=== PATIENT | male | born 1960 | race Caucasian/White ===

== ENCOUNTER 2017-11-21 15:39 | Outpatient (CLI) | payer MEDICAID ==
[~2017-11-21 15:39] MED LIST: HYDR-3965 PO; HYDR28CR14 TP; LANO250L TP; PERM60CR4 TP
[2017-11-21 16:11] VITALS: BP 145/63
== END 2017-11-21 16:49 | disposition home or self-care (01) ==
LOC: ORTHO 15:39
PROVIDERS: ATTEND Nurse Practitioner Family
DX: S52.572A Other intraarticular fracture of lower end of left radius, initial encounter for closed fracture (principal); M79.89 Other specified soft tissue disorders; F17.200 Nicotine dependence, unspecified, uncomplicated; X58.XXXA Exposure to other specified factors, initial encounter; Y93.89 Activity, other specified; Y92.89 Other specified places as the place of occurrence of the external cause; Y99.8 Other external cause status
CPT/HCPCS: 73110; 99213

== ENCOUNTER 2017-12-12 10:57 | Emergency (ER) | payer MEDICAID ==
[~2017-12-12] VITALS: Ht 172.7 cm; Wt 60.0 kg
[~2017-12-12 10:57] MED LIST changes: -HYDR-3965 PO
[2017-12-12 11:30] VITALS: BP 125/96
== END 2017-12-12 12:03 | disposition left against medical advice (07) ==
LOC: ER 10:58
DX: R21 Rash and other nonspecific skin eruption (principal); Z53.21 Procedure and treatment not carried out due to patient leaving prior to being seen by health care provider

== ENCOUNTER 2018-05-18 08:27 | Emergency (ER) | payer MEDICAID ==
[~2018-05-18] VITALS: Ht 165.1 cm; Wt 65.0 kg
[2018-05-18 08:32] VITALS: BP 149/81
[2018-05-18] MEDS ORDERED: CEPH500C5 PO (09:03)
== END 2018-05-18 09:16 | disposition home or self-care (01) ==
LOC: ER 08:28
DX: L03.312 Cellulitis of back [any part except buttock and flank] (principal); L98.499 Non-pressure chronic ulcer of skin of other sites with unspecified severity; G89.29 Other chronic pain; M54.9 Dorsalgia, unspecified; F17.200 Nicotine dependence, unspecified, uncomplicated; F12.90 Cannabis use, unspecified, uncomplicated; Z56.0 Unemployment, unspecified
CPT/HCPCS: 99283

== ENCOUNTER 2018-07-22 02:53 | Inpatient (IN) | payer MEDICAID ==
[~2018-07-22] VITALS: Ht 175.3 cm; Wt 60.0 kg
[~2018-07-22 02:53] MED LIST changes: +CEPH500C5 PO
[2018-07-22] MEDS ORDERED: normal saline 1000ML IV soln IVB ONE (03:55)
--- NOTE | 2018-07-22 05:00 | NUR ---
bg in low fifty's, gave patient orange juice and a turkey sandwich notified dr. hanks will re-check
[2018-07-22 05:05] LABS: BASOPHILS % (AUTO) 0.3 % (0-1); EOSINOPHILS % (AUTO) 0 % (0-6); HEMATOCRIT 45.1 % (42.0-52.0); HEMOGLOBIN 15.3 g/dl (14.0-17.9); LYMPHOCYTES # (AUTO) 0.9 X10'3 (1.1-4.8); LYMPHOCYTES % (AUTO) 6.7 % (21-51); MEAN CORPUSCULAR HEMOGLOBIN 30.6 PG (27.0-31.0); MEAN CORPUSCULAR HGB CONC 33.8 g/dL (33.0-36.5); MEAN CORPUSCULAR VOLUME 90.4 FL (78-98); MEAN PLATELET VOLUME 8.6 FL (7.4-10.4); MONOCYTES # (AUTO) 0.7 X10'3 (0-0.9); MONOCYTES % (AUTO) 4.9 % (2-12); NEUTROPHILS # (AUTO) 12.5 X10'3 (1.8-7.7); NEUTROPHILS % (AUTO) 88.1 % (42-75); PLATELET COUNT 291 X10'3 (140-440); RED BLOOD COUNT 4.99 X10'6 (4.70-6.10); RED CELL DISTRIBUTION WIDTH 14.2 % (11.5-14.5); WHITE BLOOD COUNT 14.1 X10'3 (4.5-11.0)
[2018-07-22 05:20] LABS: ALANINE AMINOTRANSFERASE 57 U/L (12-78); ALBUMIN 3.5 G/DL (3.4-5.0); ALBUMIN/GLOBULIN RATIO 0.7 (1.1-1.5); ALKALINE PHOSPHATASE 124 IU/L (46-116); ANION GAP 22 (8-16); ASPARTATE AMINO TRANSFERASE 145 U/L (10-37); BILIRUBIN,TOTAL 3.5 MG/DL (0.1-1.0); BLOOD UREA NITROGEN 111 MG/DL (7-18); BUN/CREATININE RATIO 21.6 (5.4-32.0); CALCIUM 9.4 MG/DL (8.5-10.1); CHLORIDE 93 MMOL/L (99-107); CREATININE 5.15 MG/DL (0.60-1.10); INR 1.2 INR; PARTIAL THROMBOPLASTIN TIME 31 SECONDS (22-32); POTASSIUM 5.3 MMOL/L (3.5-5.1); PROTHROMBIN TIME 12.3 SECONDS (9.0-12.0); SODIUM 132 MMOL/L (135-145); TOTAL CARBON DIOXIDE 16.6 MMOL/L (24-32); TOTAL PROTEIN 8.2 G/DL (6.4-8.2); eGFR 12 ML/MIN
[2018-07-22 05:22] LABS: ETHANOL < 0.010 GM/DL (0.0-0.010); TROPONIN I < 0.04 NG/ML (0.0-0.05)
[2018-07-22 05:34] LABS: GLUCOSE 55 MG/DL (70-104)
--- NOTE | 2018-07-22 05:49 | NUR ---
patients bg 110 after sandwich and 2 oj's
[2018-07-22] MEDS ORDERED: CefTRIAXone 2gm/D5W 50ml 50 ML IV ONE (05:50)
[2018-07-22] MEDS ORDERED: NO HOME MEDS (06:08)
--- NOTE | 2018-07-22 07:05 | NUR ---
Pt temp 96.9 degrees. Pt placed on Bare Hugger, and warm blankets given.
[2018-07-22 07:56] LABS: CLARITY,URINE CLEAR (Clear); COLOR,URINE YELLOW (Yellow); GLUCOSE, URINE NEGATIVE (Neg); KETONES,URINE NEGATIVE (Neg); LEUKOCYTE ESTERASE ,URINE NEGATIVE (Neg); NITRITES, URINE NEGATIVE (Neg); OCCULT BLOOD,URINE LARGE (Neg); PH,URINE 5.5 (4.8-8.0); PROTEIN,URINE TRACE mg/dl (Neg); UROBILINOGEN,URINE 0.2 E.U/dL (0.2-1.0)
[2018-07-22 07:57] LABS: UA COLLECTION TYPE URINAL
[2018-07-22 08:02] LABS: BACTERIA,URINE 1+ /HPF (Neg); RBC,URINE 0-2 /HPF (0-2); SQUAMOUS EPITHELIAL CELL,UR FEW /LPF (FEW); WBC,URINE 0-4 /HPF (0-4)
[2018-07-22 08:03] LABS: URINE AMPHETAMINE SCREEN NEGATIVE (Neg); URINE BARBITUATE SCREEN NEGATIVE (Neg); URINE BENZODIAZEPINES SCREEN NEGATIVE (Neg); URINE CANNABINOID SCREEN NEGATIVE (Neg); URINE COCAINE SCREEN NEGATIVE (Neg); URINE METHADONE SCREEN NEGATIVE (Neg); URINE OPIATE SCREEN NEGATIVE (Neg); URINE PHENCYCLIDINE SCREEN NEGATIVE (Neg)
[2018-07-22] MEDS ORDERED: normal saline 1000ml 1,000 ML IV SCH (08:28)
[2018-07-22] MEDS ORDERED: ondansetron/PF 4mg/2ml inj IV PRN ×2 (08:30→09:40)
[2018-07-22] MEDS ORDERED: acetaminophen 325mg tablet PO PRN ×3 (08:30→09:40)
[2018-07-22] MEDS ORDERED: mag hydrox/Alum hydrox/simeth 30ml oral suspension PO PRN (08:30)
[2018-07-22] MEDS ORDERED: magnesium hydroxide 30ml (MOM) UD suspension PO PRN (08:30)
[2018-07-22] MEDS ORDERED: magnesium Cl slow-release 64mg tablet PO PRN (09:40)
[2018-07-22] MEDS ORDERED: diphenhydrAMINE 25mg capsule PO PRN (09:40)
[2018-07-22] MEDS ORDERED: bisacodyl 10mg suppository rectal RC PRN (09:40)
[2018-07-22] MEDS ORDERED: HYDROcodone/acetaminophen 10/325mg tab PO PRN (09:40)
[2018-07-22] MEDS ORDERED: HYDROcodone/acetaminophen 5mg/325mg tablet PO PRN (09:40)
[2018-07-22] MEDS ORDERED: potassium Cl 40MEQ/NS 500ml 500 ML IV PRN ×2 (09:40)
[2018-07-22] MEDS ORDERED: potassium Cl 20 mEq SR tablet PO PRN (09:40)
[2018-07-22] MEDS ORDERED: magnesium 4gm in 100ml NS 100 ML IV PRN (09:40)
[2018-07-22] MEDS ORDERED: magnesium 2GM in 50ml NS 50 ML IV PRN (09:40)
[2018-07-22] MEDS ORDERED: sodium polystyrene sulfonate 15gm/60ml oral suspension PO ONE (09:40)
[2018-07-22] MEDS ORDERED: morphine 4 MG/ML inj SYRINge IV PRN ×2 (09:40)
[2018-07-22] MEDS: sodium bicarbonate (8.4%) inj. 100 MEQ in dextrose 5%-water 1,000 ML IV SCH ×3 (10:14→18:26)
[2018-07-22 10:28] LABS: HEMOGLOBIN A1C 5.5 % (4.5-6.2)
[2018-07-22] MEDS: K and/or MAG REPLACEMENT MC SCH (10:31)
[2018-07-22 11:08] LABS: CREATINE KINASE 3466 U/L (39-308)
[2018-07-22] MEDS: LORazepam 2 mg/ml vial IV PRN ×2 (11:56→20:26)
[2018-07-22] MEDS ORDERED: haloperidol lactate 5mg/ml inj IM PRN (12:45)
[2018-07-22 13:00] VITALS: BP 104/68
--- NOTE | 2018-07-22 13:46 | NUR ---
Patient in room [facility]. I have received report from Vu RICHEY and had the opportunity to ask questions and assume patient care.
--- NOTE | 2018-07-22 13:47 | NUR ---
patient seen by DR Barclay, patient unable to communicate batting air with hands and kicking out legs. Assigned a sitter and Haldol 5mg given IM, with effect. patient sleeping.
--- NOTE | 2018-07-22 18:30 | NUR ---
Patient in room [facility]. I have received report from Ayah RICHEY and had the opportunity to ask questions and assume patient care.
--- NOTE | 2018-07-22 18:42 | NUR ---
Problems reprioritized. Patient report given, questions answered & plan of care reviewed with Treasure RICHEY.
[2018-07-22 19:00] VITALS: BP 111/64
--- NOTE | 2018-07-22 19:00 | NUR ---
Patient sleeping, arousable to name only. Addendum: 07/23/18 at 0328 by Treasure Lindsay RN Amended: Links added.
[2018-07-22] MEDS: heparin, porcine 5000 units/ml vial SQ SCH (20:27)
[2018-07-23] VITALS: BP 88/60
[2018-07-23 04:00] VITALS: BP 109/70
[2018-07-23] MEDS: sodium bicarbonate (8.4%) inj. 100 MEQ in dextrose 5%-water 1,000 ML IV SCH (04:17)
[2018-07-23 06:29] LABS: CLARITY,URINE CLEAR (Clear); COLOR,URINE YELLOW (Yellow); GLUCOSE, URINE 100 mg/dl (Neg); KETONES,URINE TRACE mg/dl (Neg); LEUKOCYTE ESTERASE ,URINE NEGATIVE (Neg); NITRITES, URINE NEGATIVE (Neg); OCCULT BLOOD,URINE SMALL (Neg); PROTEIN,URINE TRACE mg/dl (Neg)
[2018-07-23 06:30] LABS: UA COLLECTION TYPE CLN CATCH MIDSTREAM
[2018-07-23 06:35] LABS: BASOPHILS % (AUTO) 0.8 % (0-1); EOSINOPHILS % (AUTO) 0.3 % (0-6); HEMATOCRIT 34.7 % (42.0-52.0); LYMPHOCYTES # (AUTO) 0.8 X10'3 (1.1-4.8); LYMPHOCYTES % (AUTO) 17.2 % (21-51); MEAN CORPUSCULAR HEMOGLOBIN 30.7 PG (27.0-31.0); MEAN CORPUSCULAR HGB CONC 34.5 g/dL (33.0-36.5); MEAN CORPUSCULAR VOLUME 89.1 FL (78-98); MEAN PLATELET VOLUME 7.9 FL (7.4-10.4); MONOCYTES # (AUTO) 0.5 X10'3 (0-0.9); MONOCYTES % (AUTO) 10.1 % (2-12); NEUTROPHILS # (AUTO) 3.3 X10'3 (1.8-7.7); NEUTROPHILS % (AUTO) 71.6 % (42-75); PLATELET COUNT 167 X10'3 (140-440); RED CELL DISTRIBUTION WIDTH 14.1 % (11.5-14.5); WHITE BLOOD COUNT 4.6 X10'3 (4.5-11.0)
[2018-07-23 06:37] LABS: HYALINE CASTS 0-3 /LPF (NEGATIVE); MUCUS STRANDS FEW /LPF (Neg); SQUAMOUS EPITHELIAL CELL,UR FEW /LPF (FEW)
[2018-07-23 06:38] LABS: COARSE GRANULAR CAST 0-3 /LPF (NEGATIVE); FINE GRANULAR CAST 0-3 /LPF (NEGATIVE)
[2018-07-23 06:39] LABS: BACTERIA,URINE FEW /HPF (Neg); RBC,URINE 0-2 /HPF (0-2); WBC,URINE 0-4 /HPF (0-4)
[2018-07-23 06:42] LABS: AMORPHOUS URATES 1+
--- NOTE | 2018-07-23 06:45 | NUR ---
Problems reprioritized. Patient report given, questions answered & plan of care reviewed with Suzan RICHEY.
--- NOTE | 2018-07-23 06:50 | NUR ---
Patient in room [facility]. I have received report from KAIDEN Amanda and had the opportunity to ask questions and assume patient care.
[2018-07-23 06:56] LABS: ALANINE AMINOTRANSFERASE 39 U/L (12-78); ALBUMIN 2.4 G/DL (3.4-5.0); ALBUMIN/GLOBULIN RATIO 0.6 (1.1-1.5); ALKALINE PHOSPHATASE 85 IU/L (46-116); ANION GAP 7 (8-16); ASPARTATE AMINO TRANSFERASE 86 U/L (10-37); BILIRUBIN,TOTAL 1.3 MG/DL (0.1-1.0); BLOOD UREA NITROGEN 62 MG/DL (7-18); BUN/CREATININE RATIO 37.1 (5.4-32.0); CALCIUM 8.1 MG/DL (8.5-10.1); CHLORIDE 100 MMOL/L (99-107); CHOL/HDL RATIO 7.9 (0.00-4.99); CHOLESTEROL 119 MG/DL (0-200); CREATININE 1.67 MG/DL (0.60-1.10); GLUCOSE 112 MG/DL (70-104); HDL CHOLESTEROL 15 MG/DL (35-60); LDL CHOLESTEROL 83 MG/DL (50-100); MAGNESIUM 2.8 MG/DL (1.5-2.4); PHOSPHORUS 2.4 MG/DL (2.3-4.5); POTASSIUM 3.2 MMOL/L (3.5-5.1); SODIUM 137 MMOL/L (135-145); TOTAL CARBON DIOXIDE 30.3 MMOL/L (24-32); TOTAL PROTEIN 6.1 G/DL (6.4-8.2); TRIGLYCERIDES 151 MG/DL (20-135); eGFR 42 ML/MIN
[2018-07-23 07:01] LABS: SODIUM,URINE RANDOM < 15 MEQ/L; TOTAL PROTEIN,URINE RANDOM 59.3 MG/DL
[2018-07-23 07:42] VITALS: BP 95/51
[2018-07-23 07:44] LABS: UA EOSINOPHILS NO EOS /HPF
[2018-07-23] MEDS: K and/or MAG REPLACEMENT MC SCH (08:00)
[2018-07-23] MEDS: CefTRIAXone/D5W-Rocephin 1gm 50 ML IV SCH (09:06)
[2018-07-23] MEDS: potassium Cl 20 mEq SR tablet PO PRN ×2 (09:06→13:49)
[2018-07-23] MEDS: heparin, porcine 5000 units/ml vial SQ SCH ×2 (09:06→21:01)
[2018-07-23 09:14] LABS: HIV ANTIBODY 1&2 RAPID NON-REACTIVE (Neg)
[2018-07-23] MEDS: dextrose 5%-normal saline 1,000 ML IV SCH ×2 (11:46→20:58)
[2018-07-23 12:00] VITALS: BP 99/61
--- NOTE | 2018-07-23 18:37 | NUR ---
Problems reprioritized. Patient report given, questions answered & plan of care reviewed with KAIDEN Infante and hermelindo Layne RN.
--- NOTE | 2018-07-23 18:57 | NUR ---
Received report from Suzan RICHEY with Xi RICHEY pt is awake, on RA, stating he had a bowel movement, call light and items of freq use within reach.
--- NOTE | 2018-07-23 18:57 | NUR ---
Received report in room 355[facility] from Suzan RICHEY with Arelis RICHEY and Xi RICHEY. Patient is in bed and she is alert and orieted . She is complaining of headache and will follow up.
[2018-07-23 19:00] VITALS: BP 111/67
[2018-07-23] MEDS: lactobacillus rhamnosus 10,000 MMU CELLS/CAPSULE PO SCH (21:00)
[2018-07-24] VITALS: BP 103/56
[2018-07-24] MEDS: dextrose 5%-normal saline 1,000 ML IV SCH ×3 (01:25→14:47)
[2018-07-24 05:47] LABS: BASOPHILS % (AUTO) 0.7 % (0-1); EOSINOPHILS % (AUTO) 1.2 % (0-6); HEMATOCRIT 33.5 % (42.0-52.0); HEMOGLOBIN 11.3 g/dl (14.0-17.9); LYMPHOCYTES # (AUTO) 0.8 X10'3 (1.1-4.8); LYMPHOCYTES % (AUTO) 27.9 % (21-51); MEAN CORPUSCULAR HEMOGLOBIN 30.7 PG (27.0-31.0); MEAN CORPUSCULAR HGB CONC 33.8 g/dL (33.0-36.5); MEAN CORPUSCULAR VOLUME 90.9 FL (78-98); MEAN PLATELET VOLUME 7.5 FL (7.4-10.4); MONOCYTES # (AUTO) 0.3 X10'3 (0-0.9); MONOCYTES % (AUTO) 11.2 % (2-12); NEUTROPHILS # (AUTO) 1.8 X10'3 (1.8-7.7); PLATELET COUNT 138 X10'3 (140-440); RED BLOOD COUNT 3.68 X10'6 (4.70-6.10); RED CELL DISTRIBUTION WIDTH 13.9 % (11.5-14.5)
[2018-07-24 05:53] LABS: ALANINE AMINOTRANSFERASE 38 U/L (12-78); ALBUMIN 2.2 G/DL (3.4-5.0); ALBUMIN/GLOBULIN RATIO 0.6 (1.1-1.5); ALKALINE PHOSPHATASE 72 IU/L (46-116); ANION GAP 0 (8-16); ASPARTATE AMINO TRANSFERASE 70 U/L (10-37); BLOOD UREA NITROGEN 29 MG/DL (7-18); BUN/CREATININE RATIO 24.2 (5.4-32.0); CALCIUM 7.9 MG/DL (8.5-10.1); CHLORIDE 105 MMOL/L (99-107); CREATINE KINASE 464 U/L (39-308); GLUCOSE 108 MG/DL (70-104); MAGNESIUM 2.2 MG/DL (1.5-2.4); PHOSPHORUS 1.6 MG/DL (2.3-4.5); POTASSIUM 3.8 MMOL/L (3.5-5.1); SODIUM 138 MMOL/L (135-145); TOTAL CARBON DIOXIDE 32.9 MMOL/L (24-32); TOTAL PROTEIN 5.6 G/DL (6.4-8.2); eGFR 62 ML/MIN
--- NOTE | 2018-07-24 06:22 | NUR ---
Patient in room [facility]. I have received report from Arelis RICHEY and had the opportunity to ask questions and assume patient care.
[2018-07-24 06:28] LABS: PLATELET ESTIMATE DECREASED; TOTAL CELLS COUNTED 100
[2018-07-24 06:29] LABS: POLYCHROMASIA 1+; TOXIC GRANULATION 1+
--- NOTE | 2018-07-24 06:45 | NUR ---
Problems reprioritized. Patient report given, questions answered & plan of care reviewed with Leda RICHEY.
--- NOTE | 2018-07-24 07:48 | NUR ---
Paged concerning 24 hour tele. Patient SR.
[2018-07-24 08:00] VITALS: BP 102/71
[2018-07-24] MEDS: K and/or MAG REPLACEMENT MC SCH (08:00)
--- NOTE | 2018-07-24 08:01 | NUR ---
Student Medication Administration: For this medication-pass time frame, all medication were reviewed, dispensed, administered and documented per hospital policy by Mirlande FENG from [facility].
[2018-07-24] MEDS: CefTRIAXone/D5W-Rocephin 1gm 50 ML IV SCH (08:21)
[2018-07-24 08:24] LABS: HBSAG SCREEN Negative (Negative); HEP A AB, IGM Negative (Negative); HEP B CORE AB, IGM Negative (Negative); HEPATITIS C ANTIBODY >11.0 s/co ratio (0.0-0.9)
[2018-07-24] MEDS: lactobacillus rhamnosus 10,000 MMU CELLS/CAPSULE PO SCH (08:24)
[2018-07-24] MEDS: heparin, porcine 5000 units/ml vial SQ SCH ×2 (08:25→21:00)
[2018-07-24 11:00] VITALS: BP 126/87
[2018-07-24] MEDS ORDERED: morphine 2 MG/ML inj. syringe IV PRN ×2 (15:36)
[2018-07-24 19:00] VITALS: BP 158/94
[2018-07-25] VITALS: BP 135/74
[2018-07-25] MEDS: dextrose 5%-normal saline 1,000 ML IV SCH ×2 (02:57→11:26)
--- NOTE | 2018-07-25 06:23 | NUR ---
Problems reprioritized. Patient report given, questions answered & plan of care reviewed with Leda RICHEY. Addendum: 07/25/18 at 0623 by Mabel Barraza RN Amended: Links added.
[2018-07-25 06:39] LABS: BASOPHILS % (AUTO) 1.3 % (0-1); EOSINOPHILS # (AUTO) 0.1 X10'3 (0-0.9); EOSINOPHILS % (AUTO) 1.8 % (0-6); HEMATOCRIT 34.6 % (42.0-52.0); HEMOGLOBIN 11.6 g/dl (14.0-17.9); LYMPHOCYTES # (AUTO) 0.8 X10'3 (1.1-4.8); LYMPHOCYTES % (AUTO) 24.4 % (21-51); MEAN CORPUSCULAR HEMOGLOBIN 30.7 PG (27.0-31.0); MEAN CORPUSCULAR HGB CONC 33.7 g/dL (33.0-36.5); MEAN PLATELET VOLUME 7.8 FL (7.4-10.4); MONOCYTES # (AUTO) 0.3 X10'3 (0-0.9); MONOCYTES % (AUTO) 8.5 % (2-12); NEUTROPHILS # (AUTO) 2.1 X10'3 (1.8-7.7); PLATELET COUNT 148 X10'3 (140-440); RED CELL DISTRIBUTION WIDTH 13.9 % (11.5-14.5); WHITE BLOOD COUNT 3.3 X10'3 (4.5-11.0)
--- NOTE | 2018-07-25 06:43 | NUR ---
Patient in room [facility]. I have received report from Mabel RICHEY and had the opportunity to ask questions and assume patient care.
[2018-07-25 07:09] LABS: ALANINE AMINOTRANSFERASE 39 U/L (12-78); ALBUMIN 2.3 G/DL (3.4-5.0); ALBUMIN/GLOBULIN RATIO 0.6 (1.1-1.5); ALKALINE PHOSPHATASE 88 IU/L (46-116); ANION GAP 6 (8-16); ASPARTATE AMINO TRANSFERASE 76 U/L (10-37); BILIRUBIN,TOTAL 0.5 MG/DL (0.1-1.0); BLOOD UREA NITROGEN 22 MG/DL (7-18); BUN/CREATININE RATIO 25.3 (5.4-32.0); CALCIUM 8.2 MG/DL (8.5-10.1); CHLORIDE 107 MMOL/L (99-107); CREATINE KINASE 275 U/L (39-308); CREATININE 0.87 MG/DL (0.60-1.10); GLUCOSE 103 MG/DL (70-104); MAGNESIUM 1.5 MG/DL (1.5-2.4); PHOSPHORUS 1.8 MG/DL (2.3-4.5); POTASSIUM 4.1 MMOL/L (3.5-5.1); SODIUM 140 MMOL/L (135-145); TOTAL CARBON DIOXIDE 27.2 MMOL/L (24-32); eGFR 90 ML/MIN
[2018-07-25 08:00] VITALS: BP 144/102
[2018-07-25] MEDS: K and/or MAG REPLACEMENT MC SCH (08:00)
[2018-07-25] MEDS: CefTRIAXone/D5W-Rocephin 1gm 50 ML IV SCH (08:10)
[2018-07-25] MEDS: heparin, porcine 5000 units/ml vial SQ SCH (08:11)
--- NOTE | 2018-07-25 09:37 | NUR ---
DC'd patients IV access in right foot.
[2018-07-25] MEDS ORDERED: CEFD300C3 PO (10:08)
[2018-07-25 11:00] VITALS: BP 152/96
--- NOTE | 2018-07-25 12:34 | NUR ---
Case management paged regarding the need for clothes and shoes before being discharged. discharge packet being completed.
--- NOTE | 2018-07-25 12:45 | NUR ---
Case Management looking for clothing and shoes for patient to be dc'd
--- NOTE | 2018-07-25 13:13 | NUR ---
Patient discharged, lunch packed and provided, shoes and clothing provided. Bus ticket given to patient. Medications called in to [facility]. VSS, A&Ox4, ambulating independently.
--- NOTE | 2018-07-25 13:25 | NUR ---
Patient walked out of the hospital. Refused to have us walk him out and refused a wheelchair for discharge. He had his packet in hand and bus ticket with him.
== END 2018-07-25 13:14 | disposition home or self-care (01) | DRG 720 ==
LOC: ER 02:54 → EDBEDREQTM 08:30 → ED HOLD 11:59 → SUR 3N 12:00
PROVIDERS: ADMIT Emergency Medicine; ATTEND Family Medicine
DX: A41.9 Sepsis, unspecified organism (principal); N17.0 Acute kidney failure with tubular necrosis; G92 Toxic encephalopathy; E87.2 Acidosis; M62.82 Rhabdomyolysis; E86.0 Dehydration; N39.0 Urinary tract infection, site not specified; F10.10 Alcohol abuse, uncomplicated; B19.20 Unspecified viral hepatitis C without hepatic coma; G89.29 Other chronic pain; M54.9 Dorsalgia, unspecified; R74.0 Nonspecific elevation of levels of transaminase and lactic acid dehydrogenase [LDH]; R68.0 Hypothermia, not associated with low environmental temperature; F15.129 Other stimulant abuse with intoxication, unspecified; F17.200 Nicotine dependence, unspecified, uncomplicated; Z71.6 Tobacco abuse counseling; Z59.0 Homelessness; Z91.19 Patient's noncompliance with other medical treatment and regimen; X31.XXXA Exposure to excessive natural cold, initial encounter
CPT/HCPCS: 36415; 70450; 71045; 76775; 80053; 80061; 80305; 80320; 81001; 82140; 82550; 82570; 82948; 83036; 83605; 83735; 84100; 84145; 84156; 84300; 84484; 85025; 85610; 85730; 86703; 86705; 86706; 86709; 86803; 87040; 87070; 87088; 87207; 87340; 93005; 96361; 96365; 96375; 97116; 97161; 97530; 99285; G0378; J0696; J1630; J1644; J2060; J2270; J7030; J7042

== ENCOUNTER 2018-08-24 08:30 | Emergency (ER) | payer MEDICAID ==
[~2018-08-24] VITALS: Ht 165.1 cm; Wt 68.2 kg
[2018-08-24 08:32] VITALS: BP 140/111
[2018-08-24] MEDS ORDERED: PERM60CR4 TOP (08:52)
== END 2018-08-24 09:13 | disposition home or self-care (01) ==
LOC: ER 08:30
DX: S60.561A Insect bite (nonvenomous) of right hand, initial encounter (principal); S60.562A Insect bite (nonvenomous) of left hand, initial encounter; S80.861A Insect bite (nonvenomous), right lower leg, initial encounter; S80.862A Insect bite (nonvenomous), left lower leg, initial encounter; G89.29 Other chronic pain; F15.90 Other stimulant use, unspecified, uncomplicated; Z98.890 Other specified postprocedural states; Z56.0 Unemployment, unspecified; Z79.899 Other long term (current) drug therapy; W57.XXXA Bitten or stung by nonvenomous insect and other nonvenomous arthropods, initial encounter; Y93.89 Activity, other specified; Y92.89 Other specified places as the place of occurrence of the external cause; Y99.8 Other external cause status
CPT/HCPCS: 99282

== ENCOUNTER 2021-08-01 21:17 | Emergency (ER) | payer SELFPAY ==
[~2021-08-01] VITALS: Ht 165.1 cm; Wt 86.4 kg
[~2021-08-01 21:17] MED LIST changes: -CEPH500C5 PO; -HYDR28CR14 TP; -LANO250L TP; +PERM60CR4 TOP; -PERM60CR4 TP
[2021-08-01] MEDS ORDERED: ketorolac tromethamine 15mg/ml inj. IM ONE (21:50)
[2021-08-01] MEDS ORDERED: IBUP-1984 PO (22:32)
[2021-08-02 00:02] VITALS: BP 138/89
== END 2021-08-02 00:04 | disposition home or self-care (01) ==
LOC: ER 21:18
DX: K40.90 Unilateral inguinal hernia, without obstruction or gangrene, not specified as recurrent (principal); M25.561 Pain in right knee; R22.41 Localized swelling, mass and lump, right lower limb; I50.9 Heart failure, unspecified; G89.29 Other chronic pain; Z86.19 Personal history of other infectious and parasitic diseases; F15.90 Other stimulant use, unspecified, uncomplicated; F11.90 Opioid use, unspecified, uncomplicated; Z56.0 Unemployment, unspecified; Z59.00 Homelessness unspecified; Z72.89 Other problems related to lifestyle; Z79.899 Other long term (current) drug therapy
CPT/HCPCS: 29505; 73564; 96372; 99284; J1885

== ENCOUNTER 2021-10-19 15:07 | Emergency (ER) | payer MEDICAID ==
[~2021-10-19] VITALS: Ht 165.1 cm; Wt 86.0 kg
[2021-10-19 16:27] VITALS: BP 110/74
== END 2021-10-19 17:30 | disposition home or self-care (01) ==
LOC: ER 15:07
DX: K40.90 Unilateral inguinal hernia, without obstruction or gangrene, not specified as recurrent (principal); R10.13 Epigastric pain; I50.9 Heart failure, unspecified; G89.29 Other chronic pain; F17.200 Nicotine dependence, unspecified, uncomplicated; F12.90 Cannabis use, unspecified, uncomplicated; F15.90 Other stimulant use, unspecified, uncomplicated; F11.90 Opioid use, unspecified, uncomplicated; Z86.19 Personal history of other infectious and parasitic diseases; Z90.89 Acquired absence of other organs; Z98.890 Other specified postprocedural states; Z72.89 Other problems related to lifestyle; Z59.00 Homelessness unspecified; Z56.0 Unemployment, unspecified; Z79.899 Other long term (current) drug therapy
CPT/HCPCS: 99283

== ENCOUNTER 2021-12-20 06:56 | Day surgery (SDC) | payer MEDICAID ==
[2021-12-14 09:51] LABS: BASOPHILS % (AUTO) 0.7 % (0-1); EOSINOPHILS # (AUTO) 0.1 X10'3 (0-0.9); EOSINOPHILS % (AUTO) 1.9 % (0-6); LYMPHOCYTES # (AUTO) 1.1 X10'3 (1.1-4.8); MEAN CORPUSCULAR HEMOGLOBIN 31.4 PG (27.0-31.0); MEAN CORPUSCULAR HGB CONC 34.4 g/dL (33.0-36.5); MEAN CORPUSCULAR VOLUME 91.2 FL (78-98); MEAN PLATELET VOLUME 7.6 FL (7.4-10.4); MONOCYTES # (AUTO) 0.5 X10'3 (0-0.9); MONOCYTES % (AUTO) 8.1 % (2-12); NEUTROPHILS # (AUTO) 4.1 X10'3 (1.8-7.7); NEUTROPHILS % (AUTO) 70.3 % (42-75); PRE OP HEMATOCRIT 40.5 % (42.0-52.0); PRE OP HEMOGLOBIN 13.9 g/dL (14.0-17.9); PRE OP PLATELET COUNT 126 X10'3 (140-440); RED BLOOD COUNT 4.44 X10'6 (4.70-6.10); RED CELL DISTRIBUTION WIDTH 13.6 % (11.5-14.5)
[2021-12-14 10:07] LABS: ALBUMIN 3.8 G/DL (3.4-5.0); ALBUMIN/GLOBULIN RATIO 1.1 (1.1-1.5); ALKALINE PHOSPHATASE 77 IU/L (46-116); BLOOD UREA NITROGEN 24 MG/DL (7-18); CHLORIDE 103 MMOL/L (99-107); CREATININE 1.09 MG/DL (0.60-1.10); PRE OP ALT 16 U/L (30-65); PRE OP ANION GAP 10 (8-16); PRE OP AST 14 U/L (10-37); PRE OP BILIRUB, TOTAL 0.8 MG/DL (0.0-1.0); PRE OP GLUCOSE 116 MG/DL (70-104); PRE OP POTASSIUM 3.8 MMOL/L (3.4-5.1); PRE OP SODIUM 139 MMOL/L (135-145); TOTAL CARBON DIOXIDE 26.1 MMOL/L (24-32); TOTAL PROTEIN 7.3 G/DL (6.4-8.2); eGFR 69 ML/MIN
[~2021-12-20] VITALS: Ht 167.6 cm; Wt 88.4 kg
[2021-12-20] VITALS (18 sets, daily range): BP systolic 105–167; BP diastolic 59–110
[~2021-12-20 06:56] MED LIST changes: +PALI39DI; -PERM60CR4 TOP; +ceFAZolin inj. 2,000 MG in dextrose 5%-water 100 ML IV ONE; +famotidine 20mg tablet PO ONE; +ringers solution, lacted 1,000 ML IV SCH
[2021-12-20] MEDS ORDERED: proCHLORperazine 10 MG/2 ml inj IV PRN (07:40)
[2021-12-20] MEDS ORDERED: meperidine/PF 25mg/ml syringe IV PRN ×3 (07:40)
[2021-12-20] MEDS ORDERED: acetaminophen 1,000mg/100ml IV 100 ML IV PRN (07:40)
[2021-12-20] MEDS ORDERED: morphine 2 MG/ML inj. syringe IV PRN (07:40)
[2021-12-20] MEDS ORDERED: ondansetron/PF 4mg/2ml inj IV PRN (07:40)
[2021-12-20] MEDS ORDERED: morphine 4 MG/ML inj SYRINge IV PRN (07:40)
[2021-12-20] MEDS ORDERED: labetalol 20mg/4ml (5mg/ml) syringe IV PRN (07:40)
[2021-12-20] MEDS ORDERED: hydrALAZINE 20mg/ml inj. IV PRN (07:40)
[2021-12-20] MEDS ORDERED: ringers solution, lacted 1,000 ML IV SCH (07:40)
[2021-12-20] MEDS ORDERED: LIDOcaine 0.5% (5mg/ml) 50ml vial ONE (08:54)
[2021-12-20] MEDS ORDERED: BUPIVAcaine/PF 2.5 mg/ml (0.25%) 30ml vial ONE (08:54)
[2021-12-20] MEDS ORDERED: LIDOcaine 1% 30ml preserv. free vial ONE (08:56)
[2021-12-20] MEDS ORDERED: fentaNYL /PF 50mcg/ml 5ml ampule ONE (09:11)
[2021-12-20] MEDS ORDERED: midazolam 1 mg/ML 2ml injection ONE (09:11)
[2021-12-20] MEDS ORDERED: ondansetron/PF 4mg/2ml inj ONE (09:44)
[2021-12-20] MEDS ORDERED: dexamethasone sod phosphate 4mg/ml inj. ONE (09:44)
[2021-12-20] MEDS ORDERED: rocuronium 10mg/ml inj IV ONE ×2 (09:44→11:05)
[2021-12-20] MEDS ORDERED: propofol inj 20 ML IV ONE (09:44)
[2021-12-20] MEDS ORDERED: LIDOcaine 2% (20mg/ml) 5ml vial ONE (09:44)
[2021-12-20] MEDS ORDERED: sugammadex 200mg/2ml injection IV ONE (10:59)
[2021-12-20] MEDS ORDERED: ePHEDrine 50MG/ML INJ. ONE (11:05)
[2021-12-20] MEDS ORDERED: 0.9 % SODIUM CHLORIDE 10 ML VIAL ONE (11:05)
--- NOTE | 2021-12-20 11:22 | NUR ---
Received from OR via [facility], accompanied by Anesthesiologist DR MOROCHO and report given by Anesthesiologist. PT DROWSY, DENIES PAIN. ABD W/3 LAP SITES W/BANDAIDS RAPHAEL. Addendum: 12/20/21 at 1146 by Jessica Goode RN Amended: Links added.
[2021-12-20] MEDS ORDERED: HYDROcodone/acetaminophen 5mg/325mg tablet PO PRN (11:35)
--- NOTE | 2021-12-20 11:59 | NUR ---
Received from OR via BED, accompanied by Anesthesiologist DR WANG and report given by Anesthesiologist AND BUY BOAT OPERATOR RN. PT DROWSY, DENIES PAIN. PT A/O X 4, IZABELA MEDINA W/RUTH'S CDI, SOFT, NO SWELLING OR HEMATOMA NOTED. 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 Addendum: 12/20/21 at 1231 by Jessica Goode RN Amended: Links added. Addendum: 12/20/21 at 1233 by Jessica Goode RN ERROR WRONG PT
--- NOTE | 2021-12-20 13:12 | NUR ---
PT REMAINS COMFORTABLE, VSS, SENT TO [facility], REPORT GIVEN. Addendum: 12/20/21 at 1401 by Jessica Goode RN Amended: Links added.
--- NOTE | 2021-12-20 14:54 | NUR ---
PATIENT HAS VOIDED, WE ARE TRYING TO ARRANGE TRANSPORT FOR D/C NOW.
== END 2021-12-20 15:02 | disposition home or self-care (01) ==
LOC: PAS 06:56
PROVIDERS: ATTEND Surgery
DX: K42.9 Umbilical hernia without obstruction or gangrene (principal); K40.30 Unilateral inguinal hernia, with obstruction, without gangrene, not specified as recurrent; K57.32 Diverticulitis of large intestine without perforation or abscess without bleeding; K63.89 Other specified diseases of intestine; Z79.899 Other long term (current) drug therapy; Z98.890 Other specified postprocedural states; F17.210 Nicotine dependence, cigarettes, uncomplicated; Z86.19 Personal history of other infectious and parasitic diseases; F41.9 Anxiety disorder, unspecified; F32.9 Major depressive disorder, single episode, unspecified; Z83.3 Family history of diabetes mellitus; Z80.8 Family history of malignant neoplasm of other organs or systems
CPT/HCPCS: 36415; 49585; 49650; 71046; 80053; 82948; 85025; 87811; 93005; C1781; J0690; J1100; J2250; J2405; J2704; J3010; J3490; J7030; J7060; J7120; S2900; Z7506; Z7508; Z7512; A4215; A4618

== ENCOUNTER 2021-12-27 11:29 | Emergency (ER) | payer MEDICAID ==
[~2021-12-27] VITALS: Ht 167.6 cm; Wt 90.9 kg
[~2021-12-27 11:29] MED LIST changes: -ceFAZolin inj. 2,000 MG in dextrose 5%-water 100 ML IV ONE; -famotidine 20mg tablet PO ONE; -ringers solution, lacted 1,000 ML IV SCH
[2021-12-27 11:58] VITALS: BP 119/90
== END 2021-12-27 20:33 | disposition left against medical advice (07) ==
LOC: ER 11:30
DX: T81.9XXA Unspecified complication of procedure, initial encounter (principal); Z53.21 Procedure and treatment not carried out due to patient leaving prior to being seen by health care provider

== ENCOUNTER 2021-12-28 07:25 | Emergency (ER) | payer MEDICAID ==
[~2021-12-28] VITALS: Ht 167.6 cm; Wt 90.9 kg
--- NOTE | 2021-12-28 07:50 | NUR ---
Pt c/o pain/firmness in L side of scrotum since hernia repair on 12/20/21.
[2021-12-28 10:38] LABS: BASOPHILS % (AUTO) 0.7 % (0-1); EOSINOPHILS # (AUTO) 0.1 X10'3 (0-0.9); EOSINOPHILS % (AUTO) 1.6 % (0-6); HEMATOCRIT 41.7 % (42.0-52.0); HEMOGLOBIN 14.3 g/dl (14.0-17.9); LYMPHOCYTES # (AUTO) 0.9 X10'3 (1.1-4.8); LYMPHOCYTES % (AUTO) 16.9 % (21-51); MEAN CORPUSCULAR HEMOGLOBIN 31.6 PG (27.0-31.0); MEAN CORPUSCULAR HGB CONC 34.4 g/dL (33.0-36.5); MEAN PLATELET VOLUME 7.3 FL (7.4-10.4); MONOCYTES # (AUTO) 0.4 X10'3 (0-0.9); MONOCYTES % (AUTO) 7.8 % (2-12); NEUTROPHILS # (AUTO) 3.9 X10'3 (1.8-7.7); PLATELET COUNT 193 X10'3 (140-440); RED BLOOD COUNT 4.54 X10'6 (4.70-6.10); RED CELL DISTRIBUTION WIDTH 13.5 % (11.5-14.5); WHITE BLOOD COUNT 5.3 X10'3 (4.5-11.0)
[2021-12-28 10:54] LABS: ALANINE AMINOTRANSFERASE 44 U/L (12-78); ALBUMIN 3.5 G/DL (3.4-5.0); ALBUMIN/GLOBULIN RATIO 0.8 (1.1-1.5); ALKALINE PHOSPHATASE 85 IU/L (46-116); ANION GAP 7 (8-16); ASPARTATE AMINO TRANSFERASE 29 U/L (10-37); BILIRUBIN,TOTAL 1.4 MG/DL (0.1-1.0); BLOOD UREA NITROGEN 16 MG/DL (7-18); BUN/CREATININE RATIO 16.2 (5.4-32.0); CALCIUM 9.3 MG/DL (8.5-10.1); CHLORIDE 101 MMOL/L (99-107); CREATININE 0.99 MG/DL (0.60-1.10); GLUCOSE 93 MG/DL (70-104); POTASSIUM 3.9 MMOL/L (3.5-5.1); SODIUM 138 MMOL/L (135-145); TOTAL CARBON DIOXIDE 29.8 MMOL/L (24-32); TOTAL PROTEIN 7.7 G/DL (6.4-8.2); eGFR 77 ML/MIN
[2021-12-28 11:55] VITALS: BP 136/95
== END 2021-12-28 12:05 | disposition home or self-care (01) ==
LOC: ER 07:25
DX: T81.9XXA Unspecified complication of procedure, initial encounter (principal); R10.32 Left lower quadrant pain; I50.9 Heart failure, unspecified; G89.29 Other chronic pain; M54.9 Dorsalgia, unspecified; F12.10 Cannabis abuse, uncomplicated; F15.10 Other stimulant abuse, uncomplicated; Z59.00 Homelessness unspecified; Z56.0 Unemployment, unspecified; Z79.899 Other long term (current) drug therapy
CPT/HCPCS: 36415; 74176; 80053; 85025; 99284

== ENCOUNTER 2022-12-27 09:28 | Emergency (ER) | payer MEDICAID ==
[~2022-12-27] VITALS: Ht 165.1 cm; Wt 95.5 kg
[2022-12-27 09:44] VITALS: BP 118/92; PULSE 74; TEMP 97.6; O2SAT 94
[2022-12-27 10:45] LABS: BILIRUBIN,URINE SMALL (Neg); CLARITY,URINE CLEAR (Clear); COLOR,URINE AMBER (Yellow); GLUCOSE, URINE 100 mg/dl (Neg); KETONES,URINE NEGATIVE (Neg); LEUKOCYTE ESTERASE ,URINE NEGATIVE (Neg); NITRITES, URINE NEGATIVE (Neg); OCCULT BLOOD,URINE NEGATIVE (Neg); PH,URINE 5.5 (4.8-8.0); PROTEIN,URINE TRACE mg/dl (Neg); UROBILINOGEN,URINE >=8.0 E.U/dL (0.2-1.0)
[2022-12-27 10:52] LABS: UA COLLECTION TYPE CLN CATCH MIDSTREAM
[2022-12-27 10:54] LABS: BASOPHILS # (AUTO) 0.1 X10'3 (0-0.2); BASOPHILS % (AUTO) 1.2 % (0-1); EOSINOPHILS # (AUTO) 0.1 X10'3 (0-0.9); EOSINOPHILS % (AUTO) 2.4 % (0-6); HEMATOCRIT 43.5 % (42.0-52.0); LYMPHOCYTES # (AUTO) 1.2 X10'3 (1.1-4.8); MEAN CORPUSCULAR HEMOGLOBIN 32.2 PG (27.0-31.0); MEAN CORPUSCULAR HGB CONC 34.6 g/dL (33.0-36.5); MEAN CORPUSCULAR VOLUME 93.1 FL (78-98); MEAN PLATELET VOLUME 7.5 FL (7.4-10.4); MONOCYTES # (AUTO) 0.6 X10'3 (0-0.9); MONOCYTES % (AUTO) 10.2 % (2-12); NEUTROPHILS % (AUTO) 66.2 % (42-75); PLATELET COUNT 192 X10'3 (140-440); RED BLOOD COUNT 4.67 X10'6 (4.70-6.10); RED CELL DISTRIBUTION WIDTH 13.3 % (11.5-14.5); WHITE BLOOD COUNT 6.1 X10'3 (4.5-11.0)
[2022-12-27 10:54] LABS: AMORPHOUS URATES 1+; BACTERIA,URINE FEW /HPF (Neg); HYALINE CASTS 0-3 /LPF (NEGATIVE); MUCUS STRANDS MODERATE /LPF (Neg); RBC,URINE NONE SEEN /HPF (0-2); SQUAMOUS EPITHELIAL CELL,UR FEW /LPF (FEW); WBC,URINE 0-4 /HPF (0-4)
[2022-12-27 11:06] LABS: ALANINE AMINOTRANSFERASE 34 U/L (12-78); ALBUMIN 3.8 G/DL (3.4-5.0); ALKALINE PHOSPHATASE 77 IU/L (46-116); ANION GAP 11 (8-16); ASPARTATE AMINO TRANSFERASE 26 U/L (10-37); BLOOD UREA NITROGEN 22 MG/DL (7-18); CALCIUM 9.2 MG/DL (8.5-10.1); CHLORIDE 103 MMOL/L (99-107); GLUCOSE 114 MG/DL (70-104); LIPASE 61 U/L (73-393); POTASSIUM 4.1 MMOL/L (3.5-5.1); SODIUM 138 MMOL/L (135-145); TOTAL CARBON DIOXIDE 24.5 MMOL/L (24-32); TOTAL PROTEIN 7.6 G/DL (6.4-8.2); eCRCL 67 ML/MIN; eGFR 76 ML/MIN
[2022-12-27 13:25] VITALS: RESP 19
[2022-12-27] MEDS ORDERED: iohexol 300mg/ml 100ml inj. ONE (13:28)
== END 2022-12-27 16:21 | disposition home or self-care (01) ==
LOC: ER 09:29
DX: K80.20 Calculus of gallbladder without cholecystitis without obstruction (principal); R60.9 Edema, unspecified; G89.29 Other chronic pain; F12.90 Cannabis use, unspecified, uncomplicated; I50.9 Heart failure, unspecified; F15.90 Other stimulant use, unspecified, uncomplicated; Z56.0 Unemployment, unspecified; Z59.00 Homelessness unspecified; Z87.19 Personal history of other diseases of the digestive system
CPT/HCPCS: 36415; 74177; 80053; 81001; 83690; 85025; 99285; J3490; Q9967

== ENCOUNTER 2023-01-19 10:15 | Emergency (ER) | payer MEDICAID ==
[~2023-01-19] VITALS: Ht 167.6 cm; Wt 95.0 kg
[2023-01-19 10:43] VITALS: TEMP 98.5
[2023-01-19] MEDS ORDERED: CEPH-585 PO (10:51)
[2023-01-19] MEDS ORDERED: PERM60CR4 TP (10:51)
[2023-01-19 11:57] VITALS: BP 126/87; PULSE 64; RESP 18; O2SAT 95
== END 2023-01-19 12:00 | disposition home or self-care (01) ==
LOC: ER 10:16
DX: L03.114 Cellulitis of left upper limb (principal); W57.XXXA Bitten or stung by nonvenomous insect and other nonvenomous arthropods, initial encounter; Y93.89 Activity, other specified; Y92.89 Other specified places as the place of occurrence of the external cause; Y99.8 Other external cause status
CPT/HCPCS: 99283; A6449